=== PATIENT | female | born 1955 | race Caucasian/White ===

== ENCOUNTER 2017-07-22 16:26 | Emergency (ER) | payer OTHER | END 2017-07-22 17:27 | disposition home or self-care (01) | LOC: FTE 16:26 | DX: R05 Cough (principal) | CPT/HCPCS: 71045; 99284-25 ==

== ENCOUNTER 2018-08-09 13:29 | Inpatient (IN) | payer OTHER ==
[~2018-08-09 13:29] MED LIST: ETOMIDATE 20 MG INJ; SUCCINYLCHOLINE CHLORIDE 100 MG/5 ML SYG IV
[2018-08-09 14:07] LABS: ADD MAN DIFF? NO
[2018-08-09 14:10] LABS: BASOPHILS % 0.5 % (0.0-2.0); EOSINOPHILS # 0.1 10^3/ul (0.0-0.5); EOSINOPHILS % 1.6 % (0.0-7.0); HEMATOCRIT 39.4 % (37.0-47.0); HEMOGLOBIN 13.6 g/dl (12.0-16.0); LYMPHOCYTES # 2.8 10^3/ul (0.8-2.9); LYMPHOCYTES % 37.8 % (15.0-51.0); MEAN CORPUSCULAR HEMOGLOBIN 32.5 pg (29.0-33.0); MEAN CORPUSCULAR HGB CONC 34.5 g/dl (32.0-37.0); MONOCYTE # 0.6 10^3/ul (0.3-0.9); MONOCYTES % 7.5 % (0.0-11.0); NEUTROPHIL # 3.9 10^3/ul (1.6-7.5); NEUTROPHILS % 52.5 % (39.0-77.0); PLATELET COUNT 172 10^3/UL (140-415); RED BLOOD COUNT 4.19 10^6/ul (4.20-5.40); RED CELL DISTRIBUTION WIDTH 12.5 % (11.5-14.5)
[2018-08-09 14:10] LABS: WHITE BLOOD COUNT 7.4 10^3/ul (4.8-10.8)
[2018-08-09 14:24] LABS: HEMOGLOBIN A1C 5.6 % (0-5.9)
[2018-08-09 14:27] LABS: ANION GAP 11 (5-13); BLOOD UREA NITROGEN 17 mg/dl (7-20); CARBON DIOXIDE 23 mmol/L (21-31); CHLORIDE 105 mmol/L (97-110); CHOL/HDL RATIO 3.5 RATIO; CHOLESTEROL 183 mg/dl (100-200); CREATINE KINASE 116 IU/L (23-200); CREATININE 0.65 mg/dl (0.44-1.00); Estimated GFR > 60 mL/min (>60); GLUCOSE 199 mg/dl (70-220); HDL CHOLESTEROL 52 mg/dl (35-98); LDL CHOLESTEROL,CALCULATED 76 mg/dl; POTASSIUM 3.3 mmol/L (3.5-5.1); SODIUM 139 mmol/L (135-144); TRIGLYCERIDES 273 mg/dl (0-149)
[2018-08-09 14:29] LABS: ETHANOL < 10.0 mg/dl (0-0); INR 0.89; PROTIME 12.1 Sec (11.9-14.9); PT RATIO 0.9
[2018-08-09 14:30] LABS: PARTIAL THROMBOPLASTIN TIME 27.8 Sec (23.0-35.0)
[2018-08-09] MEDS ORDERED: LABETALOL HCL 20MG INJ IV ×2 (14:30→17:30)
[2018-08-09 14:38] LABS: CK INDEX 1.2; CK-MB 1.42 ng/ml (0.0-2.4); TROPONIN-I < 0.012 ng/ml (0.000-0.120)
[2018-08-09] MEDS: IOHEXOL 100 ML (15:01)
[2018-08-09] MEDS: SOD CHLORIDE 0.9% 100 ML (15:01)
[2018-08-09] MEDS: LORAZEPAM 2 MG INJ IV ×4 (16:04→21:59)
[2018-08-09 16:50] LABS: ADD UMIC YES; UR ASCORBIC ACID NEGATIVE (NEGATIVE); UR BILIRUBIN (Dip) NEGATIVE (NEGATIVE); UR BLOOD (Dip) 1+ mg/dL (NEGATIVE); UR CLARITY CLEAR (CLEAR); UR COLOR YELLOW (YELLOW); UR GLUCOSE (Dip) 1+ mg/dL (NEGATIVE); UR KETONES (Dip) NEGATIVE (NEGATIVE); UR LEUKOCYTE ESTERASE (Dip) NEGATIVE Leu/ul (NEGATIVE); UR NITRITE (Dip) NEGATIVE (NEGATIVE); UR RBC 12 /HPF (0-5); UR SPECIFIC GRAVITY (Dip) 1.031 (1.003-1.030); UR TOTAL PROTEIN (Dip) NEGATIVE (NEGATIVE); UR UROBILINOGEN (Dip) NEGATIVE (NEGATIVE); UR WBC 1 /HPF (0-5)
[2018-08-09 17:06] LABS: AMPHETAMINE/METHAMPHETAMINE Negative (NEGATIVE); BARBITURATES Negative (NEGATIVE); BENZODIAZEPINES Negative (NEGATIVE); CANNABINOIDS Negative (NEGATIVE); COCAINE Negative (NEGATIVE); OPIATES Negative (NEGATIVE)
[2018-08-09] MEDS ORDERED: morphine 2 MG INJ IV (17:30)
[2018-08-09] MEDS ORDERED: ONDANSETRON 4 MG INJ IV (17:30)
[2018-08-09] MEDS ORDERED: NACL 0.9% 3 ML SYG IV (17:30)
[2018-08-09 17:57] LABS: AADO2 Arterial 622.9 mmHg (7.0-24.0); Allen Test ACCEPTAB; Arterial Base Excess -2.8 mmol/L (-3.0-3); Arterial Blood Gas Oxygen Sat 89.6 mmHG (95.0-98.0); Arterial COHb 0.1 % (0.0-3.0); Arterial Fraction of Oxyhgb 89.2 % (93.0-99.0); Arterial HCO3 20.9 mmol/L (22.0-26.0); Arterial MetHb 0.3 % (0.0-1.5); Arterial pCO2 33.7 mmhg (35-45); MODE VENT - AC; Site Right Radial
[2018-08-09] MEDS: FENTAnyl (DRIP) 1000 mcg/100mL 100 ML IV (18:19)
[2018-08-09] MEDS: MIDAZOLAM (DRIP) 50 mg/50 mL 50 ML IV (18:19)
[2018-08-09] MEDS: SUCCINYLCHOLINE CHLORIDE 100 MG/5 ML SYG IV (18:24)
[2018-08-09] MEDS: MIDAZOLAM 1 MG/ML 5 ML INJ IV (18:24)
[2018-08-09] MEDS: ETOMIDATE 20 MG INJ IV (18:24)
[2018-08-09] MEDS: VECURONIUM 10 MG VIAL IV ×3 (18:29→22:45)
[2018-08-09] MEDS: LEVETIRACETAM 1000 MG (PMX) 100 ML IVPB ×2 (18:56→21:22)
[2018-08-09] MEDS: PROPOFOL 100 ML IV (19:00)
[2018-08-09] MEDS ORDERED: FENTAnyl (DRIP) 1000 mcg/100mL 100 ML IV (19:00)
[2018-08-09] MEDS: POTASSIUM CHLORIDE 100 ML IVPB (19:00)
[2018-08-09] MEDS: SOD CHLORIDE 0.9% 1,000 ML IV (19:01)
[2018-08-09] MEDS ORDERED: LORAZEPAM 2 MG INJ (20:24)
[2018-08-09] MEDS: FAMOTIDINE 20 MG INJ IV (21:51)
[2018-08-09] MEDS: niCARdipine 50 MG in SOD CHLORIDE 0.9% 480 ML IV (22:07)
[2018-08-10] MEDS: POTASSIUM CHLORIDE 100 ML IVPB ×2 (00:20→00:22)
[2018-08-10] MEDS: PROPOFOL 100 ML IV ×4 (00:23→17:45)
[2018-08-10] MEDS: LORAZEPAM 2 MG INJ IV (01:36)
[2018-08-10] MEDS: LABETALOL HCL 20MG INJ IV ×2 (01:37→21:52)
[2018-08-10 05:59] LABS: ADD MAN DIFF? NO
[2018-08-10 06:05] LABS: WHITE BLOOD COUNT 13.9 10^3/ul (4.8-10.8)
[2018-08-10 06:05] LABS: BASOPHILS % 0.2 % (0.0-2.0); HEMATOCRIT 37.2 % (37.0-47.0); HEMOGLOBIN 12.7 g/dl (12.0-16.0); LYMPHOCYTES # 1.4 10^3/ul (0.8-2.9); LYMPHOCYTES % 9.9 % (15.0-51.0); MEAN CORPUSCULAR HGB CONC 34.1 g/dl (32.0-37.0); MEAN CORPUSCULAR VOLUME 93.7 fl (82.0-101.0); MEAN PLATELET VOLUME 11.5 fl (7.4-10.4); MONOCYTE # 1.2 10^3/ul (0.3-0.9); MONOCYTES % 8.8 % (0.0-11.0); NEUTROPHIL # 11.2 10^3/ul (1.6-7.5); NEUTROPHILS % 80.7 % (39.0-77.0); PLATELET COUNT 148 10^3/UL (140-415); RED BLOOD COUNT 3.97 10^6/ul (4.20-5.40); RED CELL DISTRIBUTION WIDTH 12.7 % (11.5-14.5)
[2018-08-10 06:32] LABS: ALANINE AMINOTRANSFERASE 26 IU/L (13-69); ALBUMIN/GLOBULIN RATIO 1.53; ALKALINE PHOSPHATASE 85 IU/L (42-121); ANION GAP 14 (5-13); ASPARTATE AMINO TRANSFERASE 40 IU/L (15-46); BILIRUBIN,INDIRECT 0.9 mg/dl (0-1.1); BILIRUBIN,TOTAL 0.9 mg/dl (0.2-1.3); BLOOD UREA NITROGEN 11 mg/dl (7-20); CALCIUM 9.3 mg/dl (8.4-10.2); CARBON DIOXIDE 21 mmol/L (21-31); CHLORIDE 107 mmol/L (97-110); Estimated GFR > 60 mL/min (>60); GLUCOSE 179 mg/dl (70-220); POTASSIUM 4.1 mmol/L (3.5-5.1); SODIUM 142 mmol/L (135-144); TOTAL PROTEIN 6.6 g/dl (6.1-8.1)
[2018-08-10] MEDS: LEVETIRACETAM 1000 MG (PMX) 100 ML IVPB ×2 (06:33→17:46)
[2018-08-10 07:27] LABS: HEMOGLOBIN A1C 5.2 % (0-5.9)
[2018-08-10] MEDS: FAMOTIDINE 20 MG INJ IV ×2 (08:40→20:39)
[2018-08-10] MEDS: SOD CHLORIDE 0.9% 1,000 ML IV (13:49)
[2018-08-10] MEDS: niCARdipine 50 MG in SOD CHLORIDE 0.9% 480 ML IV (23:33)
[2018-08-11] MEDS: SOD CHLORIDE 0.9% 1,000 ML IV (05:42)
[2018-08-11] MEDS: PROPOFOL 100 ML IV ×3 (05:43→18:57)
[2018-08-11] MEDS: LEVETIRACETAM 1000 MG (PMX) 100 ML IVPB ×2 (05:43→17:59)
[2018-08-11 09:00] LABS: ADD MAN DIFF? NO
[2018-08-11 09:16] LABS: WHITE BLOOD COUNT 15.5 10^3/ul (4.8-10.8)
[2018-08-11 09:16] LABS: BASOPHILS % 0.1 % (0.0-2.0); HEMATOCRIT 34.3 % (37.0-47.0); HEMOGLOBIN 11.9 g/dl (12.0-16.0); LYMPHOCYTES # 1.4 10^3/ul (0.8-2.9); MEAN CORPUSCULAR HEMOGLOBIN 32.5 pg (29.0-33.0); MEAN CORPUSCULAR HGB CONC 34.7 g/dl (32.0-37.0); MEAN CORPUSCULAR VOLUME 93.7 fl (82.0-101.0); MEAN PLATELET VOLUME 11.5 fl (7.4-10.4); MONOCYTE # 1.3 10^3/ul (0.3-0.9); MONOCYTES % 8.5 % (0.0-11.0); NEUTROPHIL # 12.7 10^3/ul (1.6-7.5); NEUTROPHILS % 81.8 % (39.0-77.0); PLATELET COUNT 146 10^3/UL (140-415); RED BLOOD COUNT 3.66 10^6/ul (4.20-5.40); RED CELL DISTRIBUTION WIDTH 13.1 % (11.5-14.5)
[2018-08-11 09:17] LABS: ANION GAP 12 (5-13); BLOOD UREA NITROGEN 13 mg/dl (7-20); CARBON DIOXIDE 21 mmol/L (21-31); CHLORIDE 107 mmol/L (97-110); CREATININE 0.49 mg/dl (0.44-1.00); Estimated GFR > 60 mL/min (>60); GLUCOSE 166 mg/dl (70-220); POTASSIUM 3.4 mmol/L (3.5-5.1); SODIUM 140 mmol/L (135-144)
[2018-08-11] MEDS: FAMOTIDINE 20 MG INJ IV ×2 (09:51→20:52)
[2018-08-11] MEDS: POTASSIUM CHLORIDE 100 ML IVPB ×3 (11:34→15:52)
[2018-08-11] MEDS: PIPER-TAZO 3.375 GM IV (PMX) 100 ML IVPB ×2 (13:53→17:59)
[2018-08-11] MEDS: niCARdipine 50 MG in SOD CHLORIDE 0.9% 480 ML IV (15:55)
[2018-08-12 04:34] LABS: ADD MAN DIFF? NO
[2018-08-12 04:37] LABS: BASOPHILS % 0.1 % (0.0-2.0); HEMATOCRIT 32.6 % (37.0-47.0); LYMPHOCYTES # 1.1 10^3/ul (0.8-2.9); LYMPHOCYTES % 7.7 % (15.0-51.0); MEAN CORPUSCULAR HGB CONC 33.7 g/dl (32.0-37.0); MEAN CORPUSCULAR VOLUME 94.8 fl (82.0-101.0); MEAN PLATELET VOLUME 12.2 fl (7.4-10.4); MONOCYTE # 1.3 10^3/ul (0.3-0.9); NEUTROPHIL # 11.7 10^3/ul (1.6-7.5); NEUTROPHILS % 82.6 % (39.0-77.0); PLATELET COUNT 135 10^3/UL (140-415); RED BLOOD COUNT 3.44 10^6/ul (4.20-5.40); RED CELL DISTRIBUTION WIDTH 13.3 % (11.5-14.5)
[2018-08-12 04:37] LABS: WHITE BLOOD COUNT 14.2 10^3/ul (4.8-10.8)
[2018-08-12 04:58] LABS: ANION GAP 9 (5-13); BLOOD UREA NITROGEN 18 mg/dl (7-20); CALCIUM 8.5 mg/dl (8.4-10.2); CARBON DIOXIDE 20 mmol/L (21-31); CHLORIDE 112 mmol/L (97-110); CREATININE 0.55 mg/dl (0.44-1.00); Estimated GFR > 60 mL/min (>60); GLUCOSE 171 mg/dl (70-220); MAGNESIUM 2.4 mg/dl (1.7-2.5); POTASSIUM 3.3 mmol/L (3.5-5.1); SODIUM 141 mmol/L (135-144)
[2018-08-12] MEDS: niCARdipine 50 MG in SOD CHLORIDE 0.9% 480 ML IV (05:26)
[2018-08-12] MEDS: PIPER-TAZO 3.375 GM IV (PMX) 100 ML IVPB ×4 (05:47→18:00)
[2018-08-12] MEDS: LEVETIRACETAM 1000 MG (PMX) 100 ML IVPB ×2 (05:47→17:56)
[2018-08-12] MEDS: SOD CHLORIDE 0.9% 1,000 ML IV (05:47)
[2018-08-12] MEDS ORDERED: POTASSIUM CHLORIDE 100 ML IVPB (06:30)
[2018-08-12] MEDS: POTASSIUM CHLORIDE 100 ML IVPB ×2 (06:41→10:08)
[2018-08-12 08:44] LABS: ADD UMIC YES; UR ASCORBIC ACID NEGATIVE (NEGATIVE); UR BILIRUBIN (Dip) NEGATIVE (NEGATIVE); UR BLOOD (Dip) 3+ mg/dL (NEGATIVE); UR CLARITY CLEAR (CLEAR); UR COLOR STRAW (YELLOW); UR GLUCOSE (Dip) 3+ mg/dL (NEGATIVE); UR KETONES (Dip) NEGATIVE (NEGATIVE); UR LEUKOCYTE ESTERASE (Dip) NEGATIVE Leu/ul (NEGATIVE); UR MUCUS FEW /HPF (NONE SEEN); UR NITRITE (Dip) NEGATIVE (NEGATIVE); UR RBC 18 /HPF (0-5); UR SPECIFIC GRAVITY (Dip) 1.014 (1.003-1.030); UR TOTAL PROTEIN (Dip) NEGATIVE (NEGATIVE); UR UROBILINOGEN (Dip) NEGATIVE (NEGATIVE); UR WBC 2 /HPF (0-5)
[2018-08-12] MEDS: FAMOTIDINE 20 MG INJ IV ×2 (10:08→21:37)
[2018-08-12] MEDS: SODIUM PHOSPHATE 15 MMOL in SOD CHLORIDE 0.9% 250 ML IVPB (11:23)
[2018-08-12] MEDS: LORAZEPAM 2 MG INJ IV (19:52)
[2018-08-13] MEDS: PIPER-TAZO 3.375 GM IV (PMX) 100 ML IVPB ×4 (01:14→18:16)
[2018-08-13] MEDS: niCARdipine 50 MG in SOD CHLORIDE 0.9% 480 ML IV ×2 (02:21→15:43)
[2018-08-13] MEDS: PROPOFOL 100 ML IV ×2 (04:30→12:29)
[2018-08-13 05:41] LABS: ADD MAN DIFF? NO
[2018-08-13 05:52] LABS: WHITE BLOOD COUNT 12.6 10^3/ul (4.8-10.8)
[2018-08-13 05:52] LABS: BASOPHILS % 0.2 % (0.0-2.0); HEMATOCRIT 34.3 % (37.0-47.0); HEMOGLOBIN 11.6 g/dl (12.0-16.0); LYMPHOCYTES # 1.3 10^3/ul (0.8-2.9); LYMPHOCYTES % 10.3 % (15.0-51.0); MEAN CORPUSCULAR HEMOGLOBIN 31.8 pg (29.0-33.0); MEAN CORPUSCULAR HGB CONC 33.8 g/dl (32.0-37.0); MEAN PLATELET VOLUME 11.8 fl (7.4-10.4); MONOCYTE # 1.2 10^3/ul (0.3-0.9); MONOCYTES % 9.5 % (0.0-11.0); NEUTROPHIL # 9.9 10^3/ul (1.6-7.5); NEUTROPHILS % 79.1 % (39.0-77.0); PLATELET COUNT 157 10^3/UL (140-415); RED BLOOD COUNT 3.65 10^6/ul (4.20-5.40); RED CELL DISTRIBUTION WIDTH 13.2 % (11.5-14.5)
[2018-08-13 06:10] LABS: ANION GAP 8 (5-13); BLOOD UREA NITROGEN 21 mg/dl (7-20); CARBON DIOXIDE 24 mmol/L (21-31); CHLORIDE 116 mmol/L (97-110); Estimated GFR > 60 mL/min (>60); GLUCOSE 208 mg/dl (70-220); MAGNESIUM 2.7 mg/dl (1.7-2.5); PHOSPHORUS 2.2 mg/dl (2.5-4.9); SODIUM 148 mmol/L (135-144)
[2018-08-13 06:14] LABS: POTASSIUM 2.9 mmol/L (3.5-5.1)
[2018-08-13] MEDS: LEVETIRACETAM 1000 MG (PMX) 100 ML IVPB ×2 (06:29→17:44)
[2018-08-13] MEDS ORDERED: POTASSIUM CHLORIDE 100 ML IVPB (08:29)
[2018-08-13] MEDS: POTASSIUM CHLORIDE 100 ML IVPB ×2 (08:31→10:37)
[2018-08-13] MEDS: FAMOTIDINE 20 MG INJ IV ×2 (08:31→21:12)
[2018-08-13] MEDS ORDERED: D5W + KCL 20 MEQ 1,000 ML IV (09:30)
[2018-08-13] MEDS: POTASSIUM PHOSPHATE 40 MEQ in SOD CHLORIDE 0.9% 250 ML IVPB (10:37)
[2018-08-13 11:05] LABS: LACTIC ACID 1.7 mmol/L (0.5-2.0)
[2018-08-13] MEDS: ACETAMINOPHEN 650MG/20.3ML CUP GTB (15:43)
[2018-08-13] MEDS: MANNITOL 20% IV (16:32)
[2018-08-13 17:51] LABS: POTASSIUM 3.7 mmol/L (3.5-5.1)
[2018-08-13 17:51] LABS: PHOSPHORUS 3.3 mg/dl (2.5-4.9)
[2018-08-13] MEDS: LORAZEPAM 2 MG INJ IV (21:41)
[2018-08-14] MEDS: PIPER-TAZO 3.375 GM IV (PMX) 100 ML IVPB ×5 (01:38→23:41)
[2018-08-14] MEDS: ACETAMINOPHEN 650MG/20.3ML CUP GTB ×2 (03:02→16:06)
[2018-08-14] MEDS: PROPOFOL 100 ML IV ×3 (04:30→23:47)
[2018-08-14] MEDS: LEVETIRACETAM 1000 MG (PMX) 100 ML IVPB ×2 (05:10→17:06)
[2018-08-14 05:41] LABS: ADD MAN DIFF? NO
[2018-08-14 05:47] LABS: BASOPHILS % 0.2 % (0.0-2.0); HEMATOCRIT 34.7 % (37.0-47.0); HEMOGLOBIN 11.2 g/dl (12.0-16.0); LYMPHOCYTES % 10.3 % (15.0-51.0); MEAN CORPUSCULAR HEMOGLOBIN 31.2 pg (29.0-33.0); MEAN CORPUSCULAR HGB CONC 32.3 g/dl (32.0-37.0); MEAN CORPUSCULAR VOLUME 96.7 fl (82.0-101.0); MEAN PLATELET VOLUME 11.9 fl (7.4-10.4); MONOCYTES % 9.7 % (0.0-11.0); NEUTROPHIL # 7.7 10^3/ul (1.6-7.5); NEUTROPHILS % 78.7 % (39.0-77.0); PLATELET COUNT 147 10^3/UL (140-415); RED BLOOD COUNT 3.59 10^6/ul (4.20-5.40); RED CELL DISTRIBUTION WIDTH 13.7 % (11.5-14.5)
[2018-08-14 05:47] LABS: WHITE BLOOD COUNT 9.8 10^3/ul (4.8-10.8)
[2018-08-14 06:12] LABS: ANION GAP 12 (5-13); BLOOD UREA NITROGEN 21 mg/dl (7-20); CALCIUM 9.4 mg/dl (8.4-10.2); CARBON DIOXIDE 26 mmol/L (21-31); CHLORIDE 120 mmol/L (97-110); CREATININE 0.62 mg/dl (0.44-1.00); Estimated GFR > 60 mL/min (>60); GLUCOSE 290 mg/dl (70-220); PHOSPHORUS 2.9 mg/dl (2.5-4.9); POTASSIUM 3.2 mmol/L (3.5-5.1); SODIUM 158 mmol/L (135-144)
[2018-08-14] MEDS: FAMOTIDINE 20 MG INJ IV ×2 (08:53→20:26)
[2018-08-14] MEDS: POTASSIUM CHLORIDE 100 ML IVPB ×3 (08:59→13:44)
[2018-08-14 10:29] LABS: AADO2 Arterial 67.3 mmHg (7.0-24.0); Allen Test ACCEPTAB; Arterial Base Excess 3.5 mmol/L (-3.0-3); Arterial COHb 0.3 % (0.0-3.0); Arterial Fraction of Oxyhgb 97.5 % (93.0-99.0); Arterial HCO3 25.3 mmol/L (22.0-26.0); Arterial MetHb 0.2 % (0.0-1.5); Arterial pCO2 29.5 mmhg (35-45); MODE VENT - AC; Site Right Radial
[2018-08-14] MEDS: niCARdipine 50 MG in SOD CHLORIDE 0.9% 480 ML IV (11:34)
[2018-08-15] MEDS: ACETAMINOPHEN 650MG/20.3ML CUP GTB ×2 (00:16→12:02)
[2018-08-15] MEDS: niCARdipine 50 MG in SOD CHLORIDE 0.9% 480 ML IV (01:42)
[2018-08-15] MEDS: LEVETIRACETAM 1000 MG (PMX) 100 ML IVPB (05:17)
[2018-08-15] MEDS: PIPER-TAZO 3.375 GM IV (PMX) 100 ML IVPB ×2 (05:17→11:58)
[2018-08-15 05:33] LABS: ADD MAN DIFF? NO
[2018-08-15 05:37] LABS: WHITE BLOOD COUNT 10.5 10^3/ul (4.8-10.8)
[2018-08-15 05:37] LABS: BASOPHILS % 0.3 % (0.0-2.0); HEMATOCRIT 33.9 % (37.0-47.0); HEMOGLOBIN 11.3 g/dl (12.0-16.0); LYMPHOCYTES # 1.2 10^3/ul (0.8-2.9); LYMPHOCYTES % 11.7 % (15.0-51.0); MEAN CORPUSCULAR HEMOGLOBIN 31.8 pg (29.0-33.0); MEAN CORPUSCULAR HGB CONC 33.3 g/dl (32.0-37.0); MEAN CORPUSCULAR VOLUME 95.5 fl (82.0-101.0); MONOCYTE # 0.9 10^3/ul (0.3-0.9); NEUTROPHIL # 8.2 10^3/ul (1.6-7.5); NEUTROPHILS % 77.8 % (39.0-77.0); PLATELET COUNT 171 10^3/UL (140-415); RED BLOOD COUNT 3.55 10^6/ul (4.20-5.40); RED CELL DISTRIBUTION WIDTH 13.8 % (11.5-14.5)
[2018-08-15 06:39] LABS: ANION GAP 9 (5-13); BLOOD UREA NITROGEN 25 mg/dl (7-20); CALCIUM 9.4 mg/dl (8.4-10.2); CARBON DIOXIDE 28 mmol/L (21-31); CHLORIDE 123 mmol/L (97-110); CREATININE 0.61 mg/dl (0.44-1.00); Estimated GFR > 60 mL/min (>60); GLUCOSE 293 mg/dl (70-220); MAGNESIUM 2.9 mg/dl (1.7-2.5); PHOSPHORUS 2.7 mg/dl (2.5-4.9); POTASSIUM 3.3 mmol/L (3.5-5.1); SODIUM 160 mmol/L (135-144)
[2018-08-15] MEDS ORDERED: LORAZEPAM 2 MG INJ IV (07:30)
[2018-08-15] MEDS: FAMOTIDINE 20 MG INJ IV (08:41)
[2018-08-15] MEDS: morphine (DRIP) 100 MG/100 ML 100 ML IV (13:55)
[2018-08-16] MEDS ORDERED: ACETAMINOPHEN 1000MG/100ML IV 100 ML IVPB (09:00)
[2018-08-16] MEDS ORDERED: ONDANSETRON 4 MG INJ IV (09:00)
[2018-08-16] MEDS: ACETAMINOPHEN 650 MG SUPP PR ×2 (09:37→22:27)
[2018-08-16] MEDS: SCOPOLAMINE 1.5 MG PATCH TRANSDERM (09:37)
[2018-08-16] MEDS: morphine (DRIP) 100 MG/100 ML 100 ML IV (09:50)
[2018-08-16] MEDS ORDERED: ATROPINE 1% 5 ML OPH SL (22:30)
[2018-08-17] MEDS: morphine (DRIP) 100 MG/100 ML 100 ML IV (05:33)
[2018-08-18] MEDS: morphine (DRIP) 100 MG/100 ML 100 ML IV ×2 (02:39→23:03)
[2018-08-18] MEDS: ACETAMINOPHEN 650 MG SUPP PR (08:54)
[2018-08-18] MEDS: DIMETHICONE STICK TOP ×2 (12:20→21:58)
[2018-08-18] MEDS: ATROPINE 1% 5 ML OPH SL (21:58)
[2018-08-19] MEDS: ACETAMINOPHEN 650 MG SUPP PR (03:35)
[2018-08-19] MEDS: DIMETHICONE STICK TOP ×2 (09:32→21:19)
[2018-08-19] MEDS: ATROPINE 1% 5 ML OPH SL (09:32)
[2018-08-19] MEDS: SCOPOLAMINE 1.5 MG PATCH TRANSDERM (09:33)
[2018-08-19] MEDS: morphine (DRIP) 100 MG/100 ML 100 ML IV (18:17)
[2018-08-19] MEDS: ARTIFICIAL TEARS 15 ML OPH BOTH EYES (21:19)
== END 2018-08-20 04:33 | disposition expired | DRG 64 ==
LOC: ICU 17:06 → PP2 08-15 19:37 → 2NE 08-17 06:05 → ICU 08-10 00:14 → E/R 13:29
PROC: 0BH17EZ Insertion of Endotracheal Airway into Trachea, Via Natural or Artificial Opening (ICD-10-PCS; principal; 2018-08-09)
PROC: 5A1955Z Respiratory Ventilation, Greater than 96 Consecutive Hours (ICD-10-PCS; 2018-08-09)
DX: I61.1 Nontraumatic intracerebral hemorrhage in hemisphere, cortical (principal); G93.6 Cerebral edema; J18.9 Pneumonia, unspecified organism; J96.90 Respiratory failure, unspecified, unspecified whether with hypoxia or hypercapnia; G93.49 Other encephalopathy; G81.94 Hemiplegia, unspecified affecting left nondominant side; E87.0 Hyperosmolality and hypernatremia; I60.9 Nontraumatic subarachnoid hemorrhage, unspecified; I67.1 Cerebral aneurysm, nonruptured; I10 Essential (primary) hypertension; D72.829 Elevated white blood cell count, unspecified; E78.5 Hyperlipidemia, unspecified; E87.8 Other disorders of electrolyte and fluid balance, not elsewhere classified; E86.9 Volume depletion, unspecified; E87.6 Hypokalemia; F41.1 Generalized anxiety disorder; R40.20 Unspecified coma; R29.810 Facial weakness; R29.711 NIHSS score 11; Z51.5 Encounter for palliative care
CPT/HCPCS: 36415; 36600; 70450; 70496; 70552; 71045; 80048; 80053; 80061; 80307; 81001; 82550; 82553; 82803; 83036; 83605; 83735; 84100; 84132; 84484; 85025; 85610; 85730; 87040-91; 87081; 93005; 93306; 94002; 94003; 94770; 95819; 96374; 96376; 99291-25